=== PATIENT | female | born 1980 | race African-American/Black ===

== ENCOUNTER 2018-10-19 18:09 | Emergency (ER) | payer MEDICAID ==
[~2018-10-19] VITALS: Ht 170.2 cm; Wt 56.0 kg
[2018-10-19] MEDS ORDERED: DEXAMETHASONE 10 MG/ML VIAL IM ONE (19:00)
[2018-10-19 19:30] VITALS: BP 120/79
== END 2018-10-19 19:37 | disposition home or self-care (01) ==
LOC: ER 19:22
DX: T78.49XA Other allergy, initial encounter (principal); W57.XXXA Bitten or stung by nonvenomous insect and other nonvenomous arthropods, initial encounter
CPT/HCPCS: 96372; 99283; J1100

== ENCOUNTER 2022-06-07 17:56 | Emergency (ER) | payer MEDICAID ==
[~2022-06-07] VITALS: Ht 167.6 cm; Wt 66.3 kg
[2022-06-07 18:34] VITALS: BP 131/96
[2022-06-07] MEDS ORDERED: LIDOCAINE HCL 1% 20ML VIAL (Pyxis) INJ INFIL ONE (22:15)
[2022-06-07] MEDS ORDERED: SULF1TAB48 MT (22:31)
== END 2022-06-07 22:50 | disposition home or self-care (01) ==
LOC: ER 17:56
DX: R22.0 Localized swelling, mass and lump, head (principal)
CPT/HCPCS: 81025; 99283; Z7610